=== PATIENT | female | born 1950 | race Caucasian/White ===

== ENCOUNTER 2016-12-20 20:38 | Inpatient (IN) | payer MEDICARE ==
[~2016-12-20] VITALS: Ht 162.6 cm; Wt 61.0 kg
[~2016-12-20 20:38] MED LIST: HYDR25TA6 PO; IBUP200C8 PO; PANT40TA5 PO; TYLENOL PM PO
[2016-12-20] MEDS ORDERED: SODIUM CHLORIDE 0.9% 1,000ML IVBOLUS ONE (21:00)
[2016-12-20] MEDS ORDERED: SODIUM CHLORIDE FLUSH 10ML SYR IVF ONE (21:00)
[2016-12-20] MEDS ORDERED: LOSA25TA5 PO (21:00)
[2016-12-20] MEDS ORDERED: ONDANSETRON 2MG/ML, 2ML IVPush ONE ×2 (21:00→23:00)
[2016-12-20 21:25] LABS: ASPARTATE AMINO TRANSFERASE 99 U/L (15-37); BLOOD UREA NITROGEN 21 mg/dL (7-18)
[2016-12-20] MEDS ORDERED: CEFTRIAXONE 1,000 MG in SODIUM CHLORIDE 0.9% 50 ML IV ONE (22:00)
[2016-12-20] MEDS ORDERED: CEFTRIAXONE PMX 1GM/50ML 50 ML ONE (22:14)
[2016-12-20] MEDS ORDERED: ONDANSETRON 2MG/ML, 2ML ONE (22:38)
[2016-12-20] MEDS ORDERED: morphine SULFATE 10 MG/ML, 1ML IVPush ONE (23:00)
[2016-12-20] MEDS ORDERED: ACETAMINOPHEN 325 MG TABLET ONE ×2 (23:03→23:55)
[2016-12-20] MEDS ORDERED: PROMETHAZINE 25 MG/ML, 1ML ONE (23:07)
[2016-12-20] MEDS ORDERED: DIPHENHYDRAMINE 50 MG/ML, 1ML ONE (23:37)
[2016-12-20] MEDS ORDERED: KETOROLAC 30 MG/1 ML ONE (23:55)
[2016-12-21] MEDS ORDERED: ACETAMINOPHEN 325 MG TABLET PO ONE
[2016-12-21] MEDS ORDERED: DIPHENHYDRAMINE 50 MG/ML, 1ML IVPush ONE
[2016-12-21] MEDS ORDERED: PROMETHAZINE 25 MG/ML, 1ML IM ONE
[2016-12-21] MEDS ORDERED: SODIUM CHLORIDE 0.9% 1,000ML IVBOLUS ONE
[2016-12-21] MEDS ORDERED: KETOROLAC 30 MG/1 ML IVPush ONE (01:00)
[2016-12-21] MEDS ORDERED: SODIUM CHLORIDE 0.9% 1,000 ML IV SCH (02:40)
[2016-12-21 02:49] VITALS: BP 101/65
[2016-12-21] MEDS ORDERED: BISACODYL 10 MG SUPP PR PRN (03:00)
[2016-12-21] MEDS ORDERED: POLYETHYLENE GLYCOL 17 GM PACKET PO PRN (03:00)
[2016-12-21] MEDS ORDERED: LABETALOL 5MG/ML, 20ML IVPush PRN (03:00)
[2016-12-21] MEDS ORDERED: DOCUSATE 100 MG CAPSULE PO PRN (03:00)
[2016-12-21] MEDS ORDERED: ONDANSETRON 2MG/ML, 2ML IVPush PRN (03:00)
[2016-12-21] MEDS: HEPARIN 5,000 UNITS/ML, 1ML SQ SCH ×3 (03:16→17:38)
[2016-12-21] MEDS: CEFTRIAXONE 500 MG in DEXTROSE 5% 50 ML IV SCH (03:16)
[2016-12-21 03:32] LABS: BLOOD UREA NITROGEN 15 mg/dL (7-18)
[2016-12-21 06:49] VITALS: BP 91/60
[2016-12-21] MEDS ORDERED: POTASSIUM CHLORIDE 20 MEQ TAB.ER.PRT PO ONE (07:30)
[2016-12-21 13:30] VITALS: BP 97/65
[2016-12-21] MEDS: SODIUM CHLORIDE 0.9% IV SCH (17:38)
[2016-12-21] MEDS: MAGNESIUM SULFATE IV SCH (17:38)
[2016-12-21] MEDS: POTASSIUM CHLORIDE IV SCH (17:38)
[2016-12-21 19:32] VITALS: BP 108/70
[2016-12-21] MEDS: ACETAMINOPHEN 325 MG TABLET PO PRN (20:45)
[2016-12-21] MEDS: TRAZODONE 50MG TABLET PO PRN (20:45)
[2016-12-22 00:45] VITALS: BP 101/68
[2016-12-22] MEDS ORDERED: SODIUM CHLORIDE 0.9% IV SCH (02:40)
[2016-12-22] MEDS ORDERED: POTASSIUM CHLORIDE IV SCH (02:40)
[2016-12-22] MEDS ORDERED: MAGNESIUM SULFATE IV SCH (02:40)
[2016-12-22] MEDS: MAGNESIUM SULFATE IV SCH (03:05)
[2016-12-22] MEDS: POTASSIUM CHLORIDE IV SCH (03:05)
[2016-12-22] MEDS: SODIUM CHLORIDE 0.9% IV SCH (03:05)
[2016-12-22] MEDS: CEFTRIAXONE 500 MG in DEXTROSE 5% 50 ML IV SCH (03:30)
[2016-12-22] MEDS: HEPARIN 5,000 UNITS/ML, 1ML SQ SCH ×4 (03:31→19:49)
[2016-12-22 05:37] LABS: BLOOD UREA NITROGEN 10 mg/dL (7-18)
[2016-12-22 05:41] LABS: ASPARTATE AMINO TRANSFERASE 34 U/L (15-37)
[2016-12-22 06:48] VITALS: BP 115/76
[2016-12-22] MEDS ORDERED: CEFTRIAXONE 1,000 MG in SODIUM CHLORIDE 0.9% 50 ML IV SCH (07:30)
[2016-12-22] MEDS: ACETAMINOPHEN 325 MG TABLET PO PRN ×2 (10:39→20:33)
[2016-12-22 13:30] VITALS: BP 127/87
[2016-12-22] MEDS ORDERED: CALCIUM CARBONATE 500 MG TAB.CHEW PO ONE (19:00)
[2016-12-22 19:04] VITALS: BP 127/93
[2016-12-22] MEDS: TRAZODONE 50MG TABLET PO PRN (22:05)
[2016-12-23 02:42] VITALS: BP 142/90
[2016-12-23 05:43] LABS: ASPARTATE AMINO TRANSFERASE 26 U/L (15-37); BLOOD UREA NITROGEN 5 mg/dL (7-18)
[2016-12-23 07:00] VITALS: BP 155/94
[2016-12-23] MEDS ORDERED: CEFTRIAXONE PMX 1GM/50ML 50 ML IV SCH (07:30)
[2016-12-23] MEDS ORDERED: CEFD300C37 PO (07:51)
== END 2016-12-23 11:15 | disposition home or self-care (01) | DRG 871 ==
LOC: ED 23:59 → EDIP 12-21 01:00 → 4WST 12-21 02:37
PROVIDERS: ADMIT Internal Medicine
DX: A41.9 Sepsis, unspecified organism (principal); N17.0 Acute kidney failure with tubular necrosis; E43 Unspecified severe protein-calorie malnutrition; E87.1 Hypo-osmolality and hyponatremia; N10 Acute pyelonephritis; B96.20 Unspecified Escherichia coli [E. coli] as the cause of diseases classified elsewhere; D64.9 Anemia, unspecified; E87.6 Hypokalemia; I10 Essential (primary) hypertension; M19.90 Unspecified osteoarthritis, unspecified site; R65.20 Severe sepsis without septic shock; Z90.49 Acquired absence of other specified parts of digestive tract; Z90.710 Acquired absence of both cervix and uterus; Z88.5 Allergy status to narcotic agent; Z79.899 Other long term (current) drug therapy; Z68.23 Body mass index [BMI] 23.0-23.9, adult
CPT/HCPCS: 36415; 76700; 80048; 80053; 81001; 82550; 83605; 83690; 83735; 84439; 84443; 85025; 87040; 87077; 87086; 87186; 93005; 96365; 96366; 96372; 96375; J0696; J1644; J1885; J2405; J2550; J3475; J3480; J1200; J7030

== ENCOUNTER → 2018-05-12 | Outpatient (CLI) | payer MEDICARE, OTHER ==
[~2018-05-12] MED LIST changes: +ALEN70TA3 PO; +BIOT1TAB2 PO; +CEFD300C37 PO; +CRAN500T2 PO; +LOSA25TA6 PO; +MULT-224 PO; +OMEP-110 PO
[2018-05-12 14:05] LABS: ALBUMIN 3.9 g/dL (3.4-5.0); ANION GAP 9 mmol/L (5-15); CALCIUM 9.9 mg/dL (8.5-10.1); CHLORIDE 103 mmol/L (98-107)
[2018-05-12 14:10] LABS: ALANINE AMINOTRANSFERASE 26 U/L (12-78); ALKALINE PHOSPHATASE 41 U/L (45-117); BILIRUBIN,TOTAL 0.6 mg/dL (0.2-1.0); CREATININE 0.55 mg/dL (0.55-1.02); TOTAL PROTEIN 7.8 g/dL (6.4-8.2)
== END | disposition home or self-care (01) ==
LOC: STAR 12:39
PROVIDERS: ATTEND Otolaryngology
DX: Z01.818 Encounter for other preprocedural examination (principal); J32.4 Chronic pansinusitis; J33.0 Polyp of nasal cavity; J34.3 Hypertrophy of nasal turbinates
CPT/HCPCS: 36415; 80053; 93005

== ENCOUNTER 2018-05-21 06:32 | Day surgery (SDC) | payer MEDICARE, OTHER ==
[~2018-05-21] VITALS: Ht 162.6 cm; Wt 59.0 kg
[2018-05-21] MEDS ORDERED: LACTATED RINGERS 1,000 ML IV SCH (07:05)
[2018-05-21 07:07] VITALS: BP 121/88
[2018-05-21] MEDS ORDERED: GABAPENTIN 300 MG CAPSULE PO ONE (07:30)
[2018-05-21] MEDS ORDERED: ACETAMINOPHEN 500 MG TABLET PO ONE (07:30)
[2018-05-21] MEDS ORDERED: LIDOCAINE-MPF 1%, 2ML INFIL ONE (07:30)
[2018-05-21] MEDS ORDERED: HYDROmorphone 1 MG/ML, 1ML IV PRN (08:00)
[2018-05-21] MEDS ORDERED: PROCHLORPERAZINE 5 MG/ML, 2ML IV PRN (08:00)
[2018-05-21] MEDS ORDERED: DIPHENHYDRAMINE 50 MG/ML, 1ML IVPush PRN (08:00)
[2018-05-21] MEDS ORDERED: hydrALAzine 20 MG/ML, 1ML IV PRN (08:00)
[2018-05-21] MEDS ORDERED: LABETALOL 5MG/ML, 20ML IV PRN (08:00)
[2018-05-21] MEDS ORDERED: MEPERIDINE/PF 25MG/0.5ML IVPush PRN (08:00)
[2018-05-21] MEDS ORDERED: OXYcodone 5 MG/5 ML ORAL.SOL UDC PO PRN (08:00)
[2018-05-21] MEDS ORDERED: SCOPOLAMINE PATCH, 1.5MG PATCH.TD72 TD ONE (08:42)
[2018-05-21] MEDS ORDERED: OXYMETAZOLINE NASAL SPRAY 0.05%, 15ML ONE (08:47)
[2018-05-21] MEDS ORDERED: LIDOCAINE 1%-EPI 1:100K, 30ML ONE (08:47)
[2018-05-21] MEDS ORDERED: NEO/BACI/POLY/HC OINT 15GM ONE (08:47)
[2018-05-21] MEDS ORDERED: FENTANYL PF 100 MCG/2ML ONE ×2 (08:48→09:49)
[2018-05-21] MEDS ORDERED: EPHEDRINE 50 MG/ML, 1ML ONE (08:54)
[2018-05-21] MEDS ORDERED: DEXAMETHASONE 4 MG/ML, 1ML ONE (09:33)
[2018-05-21] MEDS ORDERED: CEFAZOLIN 1,000 MG ONE (09:33)
[2018-05-21] MEDS ORDERED: SUCCINYLCHOLINE 20 MG/ML, 10ML ONE (09:33)
[2018-05-21] MEDS ORDERED: GLYCOPYRROLATE 0.2MG/1ML, 5ML ONE (09:33)
[2018-05-21] MEDS ORDERED: NEOSTIGMINE 1 MG/ML, 10ML ONE (09:33)
[2018-05-21] MEDS ORDERED: ONDANSETRON 2MG/ML, 2ML ONE (09:33)
[2018-05-21] MEDS ORDERED: ROCURONIUM 10MG/ML,5ML ONE (09:33)
[2018-05-21] MEDS ORDERED: PROPOFOL 10 MG/ML, 20ML ONE (09:33)
[2018-05-21] MEDS ORDERED: OXYcodone 5 MG/5 ML ORAL.SOL UDC ONE (09:49)
[2018-05-21] MEDS: FENTANYL PF 100 MCG/2ML IV PRN ×2 (09:52→10:06)
== END 2018-05-21 11:40 | disposition home or self-care (01) ==
LOC: OUT 06:32
PROVIDERS: ATTEND Otolaryngology
DX: J32.9 Chronic sinusitis, unspecified (principal); J34.3 Hypertrophy of nasal turbinates; J33.9 Nasal polyp, unspecified; I10 Essential (primary) hypertension; K21.9 Gastro-esophageal reflux disease without esophagitis; Z88.5 Allergy status to narcotic agent
CPT/HCPCS: 30140; 31237; 31256; 31298; J0330; J0690; J1100; J2405; J2704; J2710; J3010; J3490; J7120